=== PATIENT | female | born 1970 | race African-American/Black ===

== ENCOUNTER 2017-03-28 07:42 | Inpatient (IN) | payer OTHER ==
[~2017-03-28] VITALS: Ht 167.6 cm; Wt 78.5 kg
[2017-03-28] VITALS (383 sets, daily range): BP systolic 103–137; BP diastolic 76–85; PULSE 64–88; TEMP 97.1–98; O2SAT 90–100
[~2017-03-28 07:42] MED LIST: ALBUTEROL0.09 MG/A3 IH; AMITRIPTYLINE H25 M1 PO; AMITRIPTYLINE25 MG PO; AMOXICILLIN 50500 MG PO; AMOXICILLIN 8751 TAB PO; BACTRIM DS 8001 TAB PO; BLOOD PRESSURE MED; CEFTIN 250250 MG/TAB; CEFTIN 250250 MG/TAB PO; CEPHALEXIN250 M1 PO; CEPHALEXIN500 M1 PO; CIPRO 500MG TA500 MG PO; CLINDAMYCIN150 MG PO; CLINDAMYCIN300 MG PO; COZAAR 25MG25 MG/TAB PO; DOXYCYCLINE 10100 MG PO; FLEXERIL 1010 MG/TAB PO; GENTAMICIN EYE D5 ML OS; IBUPROFEN800 MG PO; KETOROLAC10 MG PO; LABETALOL; LEVAQUIN 5500 MG/TA1 PO; LEVAQUIN 750MG750 M1 PO; LISINOPRIL20 MG PO; LORTAB 5/500 501 TAB PO; MAG-OX 400400 MG/TAB PO; MOTRIN 600600 MG/TAB PO; NAPROSYN500 MG PO; NASONEX SPRAY17 GM NS; NO HOME MEDICATIONS; NORCO 325 MG-51 TAB PO; NORCO 325 MG-7.1 TAB PO; NORVASC 5MG5 MG/TAB PO; PERCOCET 325 MG1 TA2 PO; PHENERGAN/CODEIN1 ML PO; PREDNISONE 20MG20 MG PO; PROVERA10 MG PO; PYRIDIUM200 M1 PO; ROBAXIN 50500 MG/TAB PO; RYBIX ODT50 MG; SEPTRA DS 8001 TAB PO; TOPAMAX 25MG25 M1 PO; ULTRAM 50MG TAB50 MG PO; UNKNOWN BP PILL; ZANAFLEX 4MG TAB4 MG PO; ZITHROMAX 250M250 MG PO; ZITHROMAX Z PA250 MG PO; ZOFRAN 4MG T4 MG/TAB PO
[2017-03-28 08:06] LABS: MEAN CELL VOLUME 96 fl (80.0-100.0); MEAN CORPUSCULAR HGB CONC 30 g/dl (33.0-37.0); MEAN PLATELET VOLUME 9.8 fl (7.4-10.4); PLATELET COUNT 387 K/mm3 (130-400); RED BLOOD COUNT 3.63 M/mm3 (4.10-5.30); REDCELL DISTRIBUTION WIDTH-CV 15.9 % (11.5-14.5); WHITE BLOOD COUNT 19.5 K/mm3 (4.8-10.8)
[2017-03-28 08:11] LABS: ADD PATHOLOGY DIFF REVIEW NO; HEMOGLOBIN 10.6 g/dl (12.5-16.0); MEAN CORPUSCULAR HEMOGLOBIN 29 pg (27.0-31.0)
[2017-03-28 08:14] LABS: ADJUSTED CALCIUM 8.1 mg/dL (8.4-10.2); ALANINE AMINOTRANSFERASE 30 U/L (9-52); ALBUMIN 4.7 gm/dL (3.5-5.0); ALKALINE PHOSPHATASE 66 U/L (50-136); ANION GAP 19 mmol/L (7-16); BILIRUBIN,TOTAL 0.5 mg/dL (0.0-1.0); BLOOD UREA NITROGEN 23 mg/dL (7-17); CALCIUM 8.7 mg/dL (8.4-10.2); CARBON DIOXIDE 26 mmol/L (22-30); CHLORIDE 102 mmol/L (98-107); CREATININE, serum 2.38 mg/dL (0.52-1.25); GLUCOSE 44 mg/dL (74-106); POTASSIUM 3.5 mmol/L (3.4-5.0); SODIUM 146 mmol/L (137-145); TOTAL PROTEIN 8.6 gm/dL (6.4-8.2)
[2017-03-28 08:44] LABS: ARTERIAL BLD GAS O2 SATURATION 92.8 % (92-100); ARTERIAL BLD GAS TCO2 CT 23.7; ARTERIAL BLOOD GAS BASE EXCESS -5.6 (-2-2); ARTERIAL BLOOD GAS PO2 68.1 mmHg (80-100); ARTERIAL BLOOD GAS pH 7.24 (7.35-7.45); OXYHEMOGLOBIN 88.6 %
[2017-03-28 08:45] LABS: ANISOCYTOSIS 1+; BAND 3 % (0-10); HYPOCHROMIA 1+; NEUTROPHILS 80 % (42.0-75.2); PLATELET ESTIMATE INCREASED (NORMAL); TOTAL CELLS COUNTED 100
[2017-03-28 08:45] LABS: ALLEN TEST YES; ALLENS TEST RESULT PASS; ATS? YES
[2017-03-28 09:51] LABS: AMPHETAMINE URINE NEGATIVE; BARBITURATES URINE NEGATIVE; BENZODIAZEPINES URINE NEGATIVE; BUPRENORPHINE URINE NEGATIVE; METHADONE URINE NEGATIVE; OPIATES URINE POSITIVE; OXYCODONE URINE POSITIVE; PHENCYCLIDINE URINE NEGATIVE; PROPOXYPHENE URINE NEGATIVE; THC CANNABINOIDS URINE POSITIVE
[2017-03-28 10:15] LABS: PH 6 (5-8); URINE APPEARANCE Hazy; URINE BACTERIA Rare /hpf; URINE BILIRUBIN Negative (NEGATIVE); URINE BLOOD 2+ (NEGATIVE); URINE COLOR Yellow; URINE GLUCOSE 2+ (NEGATIVE); URINE KETONE Negative (NEGATIVE); URINE UROBILINOGEN Negative (NEGATIVE)
[2017-03-28 10:50] LABS: ARTERIAL BLOOD GAS BASE EXCESS -3.9 (-2-2); ARTERIAL BLOOD GAS HCO3 22.6 meq/L (22-26); ARTERIAL BLOOD GAS PO2 76.8 mmHg (80-100); OXYHEMOGLOBIN 92.2 %
[2017-03-28 10:51] LABS: ATS? YES
[2017-03-28 10:52] LABS: ALLEN TEST YES; ALLENS TEST RESULT PASS
[2017-03-29] VITALS (300 sets, daily range): BP systolic 109–143; BP diastolic 62–85; PULSE 60–62; TEMP 97.7–98.4; O2SAT 67–100
== END 2017-03-29 15:15 | disposition home or self-care (01) | DRG 897 ==
LOC: COL.ER 07:42 → ICU 08:21
PROVIDERS: Family Medicine
DX: F12.120 Cannabis abuse with intoxication, uncomplicated (principal); E87.4 Mixed disorder of acid-base balance; F11.129 Opioid abuse with intoxication, unspecified; F10.10 Alcohol abuse, uncomplicated; R06.00 Dyspnea, unspecified; R41.82 Altered mental status, unspecified; F17.210 Nicotine dependence, cigarettes, uncomplicated; M54.9 Dorsalgia, unspecified; G89.29 Other chronic pain; I10 Essential (primary) hypertension
CPT/HCPCS: 90791-AI; 99223-AI; J0696; J2310; J7030; J7042

== ENCOUNTER 2017-10-22 13:20 | Emergency (ER) | payer OTHER ==
[~2017-10-22] VITALS: Ht 167.6 cm; Wt 75.0 kg
[2017-10-22 13:21] VITALS: TEMP 97.5
[2017-10-22] MEDS ORDERED: NORVASC 5MG5 MG/TAB PO ×2 (13:54→14:09)
[2017-10-22 14:26] LABS: COLLECTION METHOD CLEAN CATCH
[2017-10-22 14:35] LABS: MUCOUS Present /lpf; PH 6 (5-8); SQUAMOUS EPITHELIAL 0-2 /hpf; URINE APPEARANCE Hazy; URINE BACTERIA Moderate /hpf; URINE BILIRUBIN Negative (NEGATIVE); URINE BLOOD Negative (NEGATIVE); URINE COLOR Yellow; URINE GLUCOSE Negative (NEGATIVE); URINE KETONE Negative (NEGATIVE); URINE LEUKOCYTE ESTERASE Trace (NEGATIVE); URINE PROTEIN(semi-quant) Negative (NEGATIVE); URINE RBC 0-2 /hpf
[2017-10-22 14:42] LABS: BASO % 0.5 % (0.0-2.0); EOS # 0.2 (0.0-0.7); EOS % 2.3 % (0-4.0); GRAN % 60.9 % (42.2-75.2); LYMPH # 1.9 (1.2-3.4); LYMPH % 28.8 % (20.0-51.0); MEAN CELL VOLUME 94 fl (80.0-100.0); MEAN CORPUSCULAR HGB CONC 33 g/dl (33.0-37.0); MEAN PLATELET VOLUME 9.3 fl (7.4-10.4); MONO # 0.5 (0.1-0.6); MONO % 7.2 % (1.7-9.3); PLATELET COUNT 305 K/mm3 (130-400); RED BLOOD COUNT 3.33 M/mm3 (4.10-5.30); WHITE BLOOD COUNT 6.6 K/mm3 (4.8-10.8)
[2017-10-22 14:44] LABS: HEMATOCRIT 31.4 % (37.0-47.0); HEMOGLOBIN 10.4 g/dl (12.5-16.0); MEAN CORPUSCULAR HEMOGLOBIN 31 pg (27.0-31.0)
[2017-10-22] MEDS ORDERED: MACROBID 1100 MG/CAP PO (14:51)
[2017-10-22 14:53] VITALS: BP 177/94; PULSE 51
[2017-10-22 14:57] LABS: ADJUSTED CALCIUM 8.8 mg/dL (8.4-10.2); ALANINE AMINOTRANSFERASE 16 U/L (9-52); ALKALINE PHOSPHATASE 51 U/L (50-136); ANION GAP 8 mmol/L (7-16); BILIRUBIN,TOTAL 0.7 mg/dL (0.0-1.0); BLOOD UREA NITROGEN 10 mg/dL (7-17); CALCIUM 8.8 mg/dL (8.4-10.2); CARBON DIOXIDE 23 mmol/L (22-30); CHLORIDE 106 mmol/L (98-107); CREATININE, serum 1.02 mg/dL (0.52-1.25); GLUCOSE 93 mg/dL (74-106); POTASSIUM 3.4 mmol/L (3.4-5.0); SODIUM 137 mmol/L (137-145); TOTAL PROTEIN 7.3 gm/dL (6.4-8.2)
[2017-10-22 14:58] LABS: C-REACTIVE PROTEIN < 0.5 mg/dL (0.0-0.9)
== END 2017-10-22 15:03 | disposition home or self-care (01) ==
LOC: COL.ER 13:20
PROVIDERS: Family Medicine
DX: N30.90 Cystitis, unspecified without hematuria (principal); I10 Essential (primary) hypertension; R51 Headache; F17.210 Nicotine dependence, cigarettes, uncomplicated
CPT/HCPCS: J0595; J1200

== ENCOUNTER 2018-10-19 13:35 | Emergency (ER) | payer SELFPAY ==
[~2018-10-19] VITALS: Ht 167.6 cm; Wt 77.4 kg
[~2018-10-19 13:35] MED LIST changes: +MACROBID 1100 MG/CAP PO
[2018-10-19 13:40] VITALS: BP 179/98; TEMP 98.6
[2018-10-19 17:24] VITALS: PULSE 56
== END 2018-10-19 17:24 | disposition home or self-care (01) ==
LOC: COL.ER 13:35
DX: J06.9 Acute upper respiratory infection, unspecified (principal); I10 Essential (primary) hypertension; F17.210 Nicotine dependence, cigarettes, uncomplicated; F12.90 Cannabis use, unspecified, uncomplicated; Z88.5 Allergy status to narcotic agent; Z98.51 Tubal ligation status; Z88.6 Allergy status to analgesic agent